=== PATIENT | female | born 1970 | race Caucasian/White ===

== ENCOUNTER 2019-12-07 09:33 | Emergency (ER) | payer BC, SELFPAY ==
[2019-12-07 09:44] VITALS: BP 131/84; PULSE 87; RESP 20; TEMP 36.8; O2SAT 87; BMI 29.0
--- NOTE | 2019-12-07 09:50 | ED.GENADULT ---
HPI - General Adult General Chief complaint: Abdominal Pain Stated complaint: severe right lower back/abd pain x12 hours Time Seen by Provider: 12/07/19 09:37 Source: patient Mode of arrival: Ambulatory Limitations: no limitations History of Present Illness HPI narrative: 49-year-old female here for evaluation of approximately 18 hours of right-sided back/flank/right lower quadrant abdominal pain. She states this started as a gradual onset and then last evening worsened. She states now it is more of a ?burning ?sensation. No nausea vomiting. No change in bowel habits. No urinary symptoms. No blood in her urine. Has never had anything like this in the past. States she did take a naproxen last evening which did potentially help her symptoms somewhat. Never had a kidney stone before. No trauma. Related Data Home Medications Medication Instructions Recorded Confirmed B-complex with vitamin C [Super B 1 tab PO DAILY 12/07/19 12/07/19 Complex-Vitamin C] alprazolam 0.5 mg PO BID PRN 12/07/19 12/07/19 calcium carbonate [Calcium 500] 500 mg PO DAILY 12/07/19 12/07/19 cetirizine 10 mg PO DAILY 12/07/19 12/07/19 fluoxetine 40 mg PO DAILY 12/07/19 12/07/19 magnesium 250 mg PO DAILY 12/07/19 12/07/19 naproxen 250 mg PO BID PRN 12/07/19 12/07/19 norethindrone-e.estradiol-iron [Lo 1 tab PO DAILY 12/07/19 12/07/19 Loestrin Fe] phenylephrine HCl 10 mg PO Q4-6H PRN 12/07/19 12/07/19 pregabalin 75 mg PO BID 12/07/19 12/07/19 sumatriptan-naproxen 1 tab PO Q2-4H PRN 12/07/19 12/07/19 topiramate 25 mg PO DAILY 12/07/19 12/07/19 Previous Rx's Medication Instructions Recorded cyclobenzaprine 10 mg PO TID PRN #12 tab 12/07/19 Allergies Allergy/AdvReac Type Severity Reaction Status Date / Time No Known Drug Allergies Allergy Verified 12/07/19 09:51 Review of Systems Constitutional Constitutional: Denies fever(s) Cardiovascular Cardiovascular: Denies chest pain and Denies dyspnea Respiratory Respiratory: Denies dyspnea Gastrointestinal Gastrointestinal: Reports abdominal pain, Denies change in stool character, Denies nausea and Denies vomiting Genitourinary Genitourinary: Denies dysuria and Denies vaginal discharge Musculoskeletal Musculoskeletal: Reports back pain, Denies myalgias and Denies arthralgias Integumentary/Breasts Skin/Breast: Denies lesions and Denies rash Neurologic Neurologic: Denies behavioral changes Psychiatric Psychiatric: Denies behavioral changes Hematologic/Lymphatic Hematologic/Lymphatic: Denies easy bleeding and Denies easy bruising Patient History Medical History Depression (Acute) Fibromyalgia (Acute) Migraine (Acute) Social History Smoking Status: Never smoker Exam Initial Vital Signs Initial Vital Signs: Vital Signs Temperature 98.3 F 12/07/19 09:44 Pulse Rate 87 12/07/19 09:44 Respiratory Rate 20 12/07/19 09:44 Blood Pressure 131/84 12/07/19 09:44 Pulse Oximetry 87 L 12/07/19 09:44 Const General: cooperative and comfortable Limitations: mental status not altered HENMT Head: normal to inspection and normocephalic Resp Effort & Inspection: normal respiratory effort Auscultation: clear to auscultation bilaterally Cardio Rate: regular rate Rhythm: regular rhythm Pulses: radial pulses present GI Inspection: non-distended Palpation: soft, No firm and No tender Back/Spine/Pelvis Back: No CVA tenderness Skin Lesions: no lesions Rashes: no rashes Neuro General: alert, awake and oriented x3 Cognition: normal cognition Speech: speech normal Extrem General: normal to inspection and capillary refill normal Psych Appearance: grossly normal and well kempt Course Orders Ordered: ED Orders 12/07/19 09:50 CT kidney ureter bladder (KUB) Stat 12/07/19 10:05 Complete Blood Count AUTO DIFF Stat Comprehensive Metabolic Panel Stat Lipase Stat Discontinued Medications Ketorolac Tromethamine (Toradol) 30 mg IV NOW ONE Stop: 12/07/19 09:51 Last Admin: 12/07/19 10:06 Dose: 30 mg Documented by: YULI Vital Signs Vital signs: Vital Signs - 8 hr 12/07/19 09:44 Temperature 98.3 F Pulse Rate 87 Respiratory Rate 20 Blood Pressure 131/84 Pulse Oximetry 87 L Medical Decision Making Lab Data Lab results reviewed: Yes I reviewed the patient's lab results. Result diagrams: 12/07/19 10:05 12/07/19 10:05 Labs: Lab Results 12/07/19 12/07/19 Range/Units 10:05 10:05 WBC 5.9 (4.5-11.0) X10^3/uL RBC 4.15 (4.0-5.2) X10^6/uL Hgb 12.7 (12.0-16.0) g/dL Hct 37.4 (36-46) % MCV 90.0 (80-100) fL MCH 30.7 (26-34) PG MCHC 34.1 (30-36) % RDW 12.7 (11.6-14.8) % Plt Count 187 (150-400) X10^3/uL Neut % (Auto) 62.2 (50-75) % Lymph % (Auto) 25.8 (25-40) % Sanders % (Auto) 9.6 (3-14) % Eos % (Auto) 1.6 L (2-4) % Baso % (Auto) 0.8 (0-2) % Neut # (Auto) 3700 (2408-8448) /uL Lymph # (Auto) 1500 (1618-5029) /uL Sanders # (Auto) 600 (0-900) /uL Eos # (Auto) 100 (0-450) /uL Baso # (Auto) 0 (0-100) /uL Sodium 134 L (137-145) mmol/L Potassium 4.6 (3.4-5.1) mmol/L Chloride 105 (98-107) mmol/L Carbon Dioxide 20 L (22-32) mmol/L BUN 10 (7-17) mg/dL Creatinine 0.74 (0.52-1.04) mg/dL Estimated GFR > 60.0 (>60) mL/min BUN/Creatinine Ratio 13.5 (6-22) Glucose 85 (70-100) mg/dL Calcium 9.0 (8.4-10.2) mg/dL Total Bilirubin 0.8 (0.2-1.3) mg/dL AST 44 H (14-36) IU/L ALT 36 H (<35) IU/L Alkaline Phosphatase 38 (38-126) U/L Total Protein 7.5 (6.3-8.2) g/dL Albumin 4.3 (3.5-5.0) g/dL Globulin 3.2 (1.7-4.1) g/dL Albumin/Globulin Ratio 1.3 (1.0-2.8) Lipase 84 (23-300) U/L Urine Dip Bedside Urine Glucose Negative Bedside Urine Bilirubin - Negative Bedside Urine Ketone - Negative Urine Specific [place] 1.010 Bedside Urine Occult Blood - Negative Bedside Urine pH 7.5 Bedside Urine Protein - Negative Bedside Urine Urobilinogen - Negative Bedside Urine Nitrite - Negative Bedside Urine Leukocytes - Negative Esterase Point of care testing: Urine Dip Bedside Urine Glucose Negative Bedside Urine Bilirubin - Negative Bedside Urine Ketone - Negative Urine Specific [place] 1.010 Bedside Urine Occult Blood - Negative Bedside Urine pH 7.5 Bedside Urine Protein - Negative Bedside Urine Urobilinogen - Negative Bedside Urine Nitrite - Negative Bedside Urine Leukocytes - Negative Esterase Imaging Data CT scan - abdomen/pelvis: Radiologist's Impression: [place] [address] CT Scan Report Signed Patient: Tammie Maria LMR#: [id number] : 1970Acct:[id number] Age/Sex: 49 / FDate of Service: 12/07/19 Loc: ED Accession Number: [id number] Procedure: CT kidney ureter bladder (KUB) Ordering Provider: Juma Mota D.O. PROCEDURE: CT KIDNEY URETER BLADDER (KUB) INDICATIONS: Right-sided flank pain eval for stone TECHNIQUE: Noncontrast 5 mm thick sections acquired from the diaphragms to the symphysis. 5 mm thick coronal and sagittal reformats were then performed. For radiation dose reduction, the following was used: automated exposure control, adjustment of mA and/or kV according to patient size. COMPARISON: None. FINDINGS: Image quality: Excellent. Lung bases: Lung bases are clear. Heart size is normal. Urinary system: Both kidneys are normal in size. No kidney stones. No hydronephrosis or perinephric fat stranding. Bilateral extrarenal pelvis can be seen. Both ureters appear non-dilated throughout their expected courses. Bladder wall thickness is normal; no calcified bladder stones. Other solid organs: Liver is normal in size. Gallbladder wall does not appear thickened. Pancreas is normal in contours. Spleen is normal in size. No adrenal nodules. Peritoneum and bowel: Unenhanced bowel loops demonstrate normal wall thickness and caliber. No free fluid or air. Incidental note is made of a normal-appearing appendix. Nodes and vessels: No retroperitoneal or mesenteric adenopathy by size criteria. Aorta and inferior vena cava are normal in caliber. Abdominal wall: A mild periumbilical hernia is seen, containing fat. Pelvis: No free pelvic fluid. No inguinal hernias or adenopathy. Bones: No suspicious bony lesions. No vertebral body compression fractures. Age-appropriate bony degenerative changes are seen. Incidental note is made of a limbus vertebral body involving the anterior superior portion of the L3 vertebral body. Minimal lumbar levoconvex scoliotic curvature is noted. IMPRESSION: Negative for stones or obstructive uropathy. Bilateral extrarenal pelvis can be seen. Incidental note is made of: Fat containing periumbilical hernia Normal appendix L3 limbus vertebral body Dictated by: Jay Jay Snyder M.D. on 12/07/2019 at 9:38 Approved by: Jay Jay Snyder M.D. on 12/07/2019 at 9:42 MDM Narrative Medical decision making narrative: Patient continues to report some improvement of her symptoms. Her CT scan is negative for any acute pathology. Urine shows no signs of infection. Her symptoms could potentially have been from a recently passed kidney stone. There is no rash on the skin concerning for zoster. Feel we could hold on further workup for now. Patient was given return precautions and follow-up instructions. She expressed understanding and agreement. Discharge Plan Departure Patient Disposition: Home Clinical Impression: Abdominal pain Qualifiers: Abdominal location: right lower quadrant Qualified Code(s): R10.31 - Right lower quadrant pain Instructions: DI for Abdominal Pain-Adult Activity Restrictions/Additional Instructions: Recommend that you contact your primary provider for follow-up. Return to the emergency department for any new or worsening symptoms Prescriptions: New cyclobenzaprine 10 mg tablet 10 mg PO TID PRN (Reason: muscle spasm) Qty: 12 RF: 0 No Action fluoxetine 40 mg Capsule 40 mg PO DAILY RF: 0 cetirizine 10 mg Tablet 10 mg PO DAILY RF: 0 naproxen 250 mg Tablet 250 mg PO BID PRN (Reason: Pain, Mild) RF: 0 topiramate 25 mg Tablet 25 mg PO DAILY RF: 0 alprazolam 0.5 mg Tablet 0.5 mg PO BID PRN (Reason: Pain, Moderate) RF: 0 calcium carbonate [Calcium 500] 500 mg calcium (1,250 mg) Tablet 500 mg PO DAILY RF: 0 magnesium 250 mg Tablet 250 mg PO DAILY RF: 0 B-complex with vitamin C [Super B Complex-Vitamin C] Tablet 1 tab PO DAILY RF: 0 phenylephrine HCl 10 mg Tablet 10 mg PO Q4-6H PRN (Reason: Allergic Symptoms) RF: 0 pregabalin 75 mg Capsule 75 mg PO BID RF: 0 sumatriptan-naproxen 85-500 mg Tablet 1 tab PO Q2-4H PRN (Reason: Migraine Headache) RF: 0 Lo Loestrin Fe 1 mg-10 mcg (24)/10 mcg (2) Tablet 1 tab PO DAILY RF: 0
[2019-12-07] MEDS: KETOROLAC 60 MG/2 ML VIAL 30 MG IV (10:06)
[2019-12-07 10:20] LABS: Eosinophils Absolute Auto 100 /uL (0-450); Hemoglobin 12.7 g/dL (12.0-16.0); Lymphocytes Absolute Auto 1500 /uL (1100-4500); Neutrophils Absolute Auto 3700 /uL (1500-7000); Platelet Count 187 X10^3/uL (150-400); White Blood Cell Count 5.9 X10^3/uL (4.5-11.0)
[2019-12-07 10:24] LABS: Add Manual Diff / Slide Review NO; Basophils Absolute Auto 0 /uL (0-100); Basophils Percent Auto 0.8 % (0-2); Eosinophils Percent Auto 1.6 % (2-4); Hematocrit 37.4 % (36-46); Lymphocytes Percent Auto 25.8 % (25-40); Mean Corpuscular HGB Conc 34.1 % (30-36); Mean Corpuscular Hemoglobin 30.7 PG (26-34); Monocytes Absolute Auto 600 /uL (0-900); Monocytes Percent Auto 9.6 % (3-14); Neutrophils Percent Auto 62.2 % (50-75); Red Blood Cell Count 4.15 X10^6/uL (4.0-5.2); Red Cell Distribution Width 12.7 % (11.6-14.8)
[2019-12-07 10:33] LABS: Alanine Aminotransferase 36 IU/L (<35); Albumin 4.3 g/dL (3.5-5.0); Albumin Globulin Ratio 1.3 (1.0-2.8); Alkaline Phosphatase 38 U/L (38-126); Aspartate Aminotransferase 44 IU/L (14-36); BUN Creatinine Ratio 13.5 (6-22); Bilirubin Total 0.8 mg/dL (0.2-1.3); Blood Urea Nitrogen 10 mg/dL (7-17); Carbon Dioxide 20 mmol/L (22-32); Chloride 105 mmol/L (98-107); Estimated Glomerular Filt Rate > 60.0 mL/min (>60); Globulin 3.2 g/dL (1.7-4.1); Glucose 85 mg/dL (70-100); HEMOLYSIS 86 (0-50); Lipase 84 U/L (23-300); Potassium 4.6 mmol/L (3.4-5.1); Sodium 134 mmol/L (137-145); Total Protein 7.5 g/dL (6.3-8.2)
[2019-12-07 11:30] VITALS: BP 128/74; PULSE 70; RESP 16; O2SAT 100
== END 2019-12-07 11:42 | disposition home or self-care (01) ==
PROVIDERS: Emergency Provider Emergency Medicine
DX: R10.31 Right lower quadrant pain (principal)
CPT/HCPCS: 36415; 74176; 80053; 81003; 83690; 85025; 96374; 99284; J1885

== ENCOUNTER → 2020-05-21 08:25 | Outpatient (CLI) | payer BC, SELFPAY ==
[2020-05-21 08:59] LABS: Add Manual Diff / Slide Review NO; Basophils Absolute Auto 100 /uL (0-100); Basophils Percent Auto 0.9 % (0-2); Eosinophils Absolute Auto 400 /uL (0-450); Eosinophils Percent Auto 6.3 % (2-4); Hematocrit 39.4 % (36-46); Hemoglobin 13.4 g/dL (12.0-16.0); Lymphocytes Absolute Auto 1500 /uL (1100-4500); Lymphocytes Percent Auto 24.6 % (25-40); Mean Corpuscular HGB Conc 34.1 % (30-36); Mean Corpuscular Hemoglobin 30.7 PG (26-34); Mean Corpuscular Volume 90.2 fL (80-100); Monocytes Absolute Auto 400 /uL (0-900); Monocytes Percent Auto 7.1 % (3-14); Neutrophils Absolute Auto 3700 /uL (1500-7000); Neutrophils Percent Auto 61.1 % (50-75); Platelet Count 216 X10^3/uL (150-400); Red Blood Cell Count 4.36 X10^6/uL (4.0-5.2); Red Cell Distribution Width 12.8 % (11.6-14.8)
[2020-05-21 09:28] LABS: Alanine Aminotransferase 21 IU/L (<35); Albumin Globulin Ratio 1.4 (1.0-2.8); Alkaline Phosphatase 44 U/L (38-126); Aspartate Aminotransferase 25 IU/L (14-36); BUN Creatinine Ratio 16.9 (6-22); Bilirubin Total 0.5 mg/dL (0.2-1.3); Blood Urea Nitrogen 15 mg/dL (7-17); Calcium 9.1 mg/dL (8.4-10.2); Carbon Dioxide 27 mmol/L (22-32); Chloride 106 mmol/L (98-107); Cholesterol 200 mg/dL (140-199); Estimated Glomerular Filt Rate > 60.0 mL/min (>60); Globulin 2.9 g/dL (1.7-4.1); Glucose 87 mg/dL (70-100); HDL Cholesterol 59 mg/dL (40-60); HEMOLYSIS < 15 (0-50); LDL Cholesterol Calculated 118 mg/dL (<100); Potassium 4.9 mmol/L (3.4-5.1); Sodium 140 mmol/L (137-145); Total Protein 6.9 g/dL (6.3-8.2); Triglycerides 116 mg/dL (35-150)
[2020-05-21 09:38] LABS: Vitamin D 25 Hydroxy (D3) 45.1 ng/mL (30.0-100.0)
[2020-05-21 09:40] LABS: Free T3, Triiodothyronine Free 2.46 pg/mL (2.77-5.27); Free T4, Direct Thyroxine 1.03 ng/dL (0.78-2.19)
[2020-05-21 09:54] LABS: Thyroid Stimulating Hormone 0.823 uIU/mL (0.47-4.68)
== END ==
PROVIDERS: PCP Family Medicine; Referring Provider Family Medicine; Visit Provider Family Medicine
DX: R60.0 Localized edema (principal); Z13.220 Encounter for screening for lipoid disorders; Z86.39 Personal history of other endocrine, nutritional and metabolic disease; Z86.718 Personal history of other venous thrombosis and embolism
CPT/HCPCS: 36415; 80053; 80061; 82306; 84439; 84443; 84481; 85025

== ENCOUNTER 2020-07-19 09:00 | Outpatient (RCR) | payer BC, SELFPAY ==
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
--- NOTE | 2020-07-21 09:16 | PT-OP ANOTE ---
Pt does not show for appointment. Pt calls pt and leaves message including next appointment date and time. Of note, pt's father was sent in for unexpected brain surgery last week and has been hospitalized this week.
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
== END 2020-08-26 08:40 ==
LOC: PHYS 09:00
PROVIDERS: PCP Family Medicine; Referring Provider Family Medicine; Visit Provider Family Medicine
DX: M54.2 Cervicalgia (principal); G89.29 Other chronic pain; Z87.828 Personal history of other (healed) physical injury and trauma; M54.40 Lumbago with sciatica, unspecified side
CPT/HCPCS: 97110; 97112; 97140; 97162; 97535

== ENCOUNTER → 2021-02-23 08:07 | Outpatient (CLI) | payer OTHER, MEDICAID, SELFPAY ==
[2021-02-23 09:48] LABS: Add Manual Diff / Slide Review NO; Basophils Absolute Auto 0 /uL (0-100); Basophils Percent Auto 0.6 % (0-2); Eosinophils Absolute Auto 100 /uL (0-450); Eosinophils Percent Auto 1.9 % (2-4); Hematocrit 39.5 % (36-46); Hemoglobin 13.2 g/dL (12.0-16.0); Lymphocytes Absolute Auto 2200 /uL (1100-4500); Lymphocytes Percent Auto 31.9 % (25-40); Mean Corpuscular HGB Conc 33.6 % (30-36); Mean Corpuscular Hemoglobin 30.1 PG (26-34); Mean Corpuscular Volume 89.7 fL (80-100); Monocytes Absolute Auto 500 /uL (0-900); Monocytes Percent Auto 7.2 % (3-14); Neutrophils Absolute Auto 4000 /uL (1500-7000); Neutrophils Percent Auto 58.4 % (50-75); Platelet Count 222 X10^3/uL (150-400); Red Cell Distribution Width 13.2 % (11.6-14.8); White Blood Cell Count 6.8 X10^3/uL (4.5-11.0)
[2021-02-23 10:03] LABS: Alanine Aminotransferase 20 IU/L (<35); Albumin 3.7 g/dL (3.5-5.0); Albumin Globulin Ratio 1.3 (1.0-2.8); Alkaline Phosphatase 47 U/L (38-126); Aspartate Aminotransferase 27 IU/L (14-36); Bilirubin Total 0.5 mg/dL (0.2-1.3); Blood Urea Nitrogen 8 mg/dL (7-17); Calcium 8.7 mg/dL (8.4-10.2); Carbon Dioxide 24 mmol/L (22-32); Chloride 105 mmol/L (98-107); Cholesterol 206 mg/dL (140-199); Estimated Glomerular Filt Rate > 60.0 mL/min (>60); Globulin 2.8 g/dL (1.7-4.1); Glucose 80 mg/dL (70-100); HDL Cholesterol 54 mg/dL (40-60); HEMOLYSIS < 15 (0-50); LDL Cholesterol Calculated 118 mg/dL (<100); Potassium 4.1 mmol/L (3.4-5.1); Sodium 136 mmol/L (137-145); Total Protein 6.5 g/dL (6.3-8.2); Triglycerides 172 mg/dL (35-150)
[2021-02-23 10:18] LABS: Free T3, Triiodothyronine Free 3.05 pg/mL (2.77-5.27); Free T4, Direct Thyroxine 0.87 ng/dL (0.78-2.19)
[2021-02-23 10:32] LABS: Thyroid Stimulating Hormone 2.08 uIU/mL (0.47-4.68)
== END ==
PROVIDERS: PCP Family Medicine; Referring Provider Family Medicine; Visit Provider Family Medicine
DX: E03.9 Hypothyroidism, unspecified (principal); E78.5 Hyperlipidemia, unspecified; M79.7 Fibromyalgia; Z86.39 Personal history of other endocrine, nutritional and metabolic disease
CPT/HCPCS: 36415; 80053; 80061; 84439; 84443; 84481; 85025

== ENCOUNTER → 2021-08-11 07:10 | Outpatient (CLI) | payer OTHER, MEDICAID, SELFPAY ==
[2021-08-11 08:17] LABS: Add Manual Diff / Slide Review NO; Basophils Absolute Auto 0 /uL (0-100); Basophils Percent Auto 0.6 % (0-2); Eosinophils Absolute Auto 200 /uL (0-450); Eosinophils Percent Auto 2.8 % (2-4); Hematocrit 37.7 % (36-46); Lymphocytes Absolute Auto 1700 /uL (1100-4500); Lymphocytes Percent Auto 28.8 % (25-40); Mean Corpuscular HGB Conc 34.4 % (30-36); Mean Corpuscular Hemoglobin 30.1 PG (26-34); Mean Corpuscular Volume 87.6 fL (80-100); Monocytes Absolute Auto 600 /uL (0-900); Monocytes Percent Auto 10.1 % (3-14); Neutrophils Absolute Auto 3300 /uL (1500-7000); Neutrophils Percent Auto 57.7 % (50-75); Platelet Count 212 X10^3/uL (150-400); Red Blood Cell Count 4.31 X10^6/uL (4.0-5.2); Red Cell Distribution Width 12.9 % (11.6-14.8); White Blood Cell Count 5.8 X10^3/uL (4.5-11.0)
[2021-08-11 08:41] LABS: Alanine Aminotransferase 23 IU/L (<35); Albumin 4.2 g/dL (3.5-5.0); Albumin Globulin Ratio 1.7 (1.0-2.8); Alkaline Phosphatase 45 U/L (38-126); Aspartate Aminotransferase 26 IU/L (14-36); BUN Creatinine Ratio 10.5 (6-22); Bilirubin Total 0.4 mg/dL (0.2-1.3); Blood Urea Nitrogen 10 mg/dL (7-17); Carbon Dioxide 28 mmol/L (22-32); Chloride 104 mmol/L (98-107); Cholesterol 213 mg/dL (140-199); Estimated Glomerular Filt Rate > 60.0 mL/min (>60); Globulin 2.5 g/dL (1.7-4.1); Glucose 89 mg/dL (70-100); HDL Cholesterol 64 mg/dL (40-60); HEMOLYSIS < 15 (0-50); LDL Cholesterol Calculated 129 mg/dL (<100); Potassium 4.1 mmol/L (3.4-5.1); Sodium 137 mmol/L (137-145); Total Protein 6.7 g/dL (6.3-8.2); Triglycerides 98 mg/dL (35-150)
== END ==
PROVIDERS: PCP Family Medicine; Referring Provider Family Medicine; Visit Provider Family Medicine
DX: E78.00 Pure hypercholesterolemia, unspecified (principal); Z86.39 Personal history of other endocrine, nutritional and metabolic disease; Z86.718 Personal history of other venous thrombosis and embolism
CPT/HCPCS: 36415; 80053; 80061; 82306; 85025

== ENCOUNTER → 2022-02-10 07:45 | Outpatient (CLI) | payer OTHER, MEDICAID, SELFPAY ==
[2022-02-10 10:04] LABS: Thyroid Stimulating Hormone 1.75 uIU/mL (0.47-4.68)
[2022-02-12 17:54] LABS: Free T3, Triiodothyronine Free 3.45 pg/mL (2.77-5.27); Free T4, Direct Thyroxine 1.23 ng/dL (0.78-2.19)
== END ==
PROVIDERS: PCP Family Medicine; Referring Provider Family Medicine; Visit Provider Family Medicine
DX: E03.9 Hypothyroidism, unspecified (principal)
CPT/HCPCS: 36415; 84439; 84443; 84481

== ENCOUNTER → 2022-03-31 15:00 | Outpatient (CLI) | payer OTHER, MEDICAID, SELFPAY ==
[2022-03-31 17:41] LABS: Free T3, Triiodothyronine Free 2.61 pg/mL (2.77-5.27); Free T4, Direct Thyroxine 1.27 ng/dL (0.78-2.19)
[2022-03-31 17:55] LABS: Thyroid Stimulating Hormone 0.906 uIU/mL (0.47-4.68)
== END ==
PROVIDERS: PCP Family Medicine; Referring Provider Family Medicine; Visit Provider Family Medicine
DX: E03.9 Hypothyroidism, unspecified (principal); Z86.718 Personal history of other venous thrombosis and embolism
CPT/HCPCS: 36415; 84439; 84443; 84481

== ENCOUNTER → 2022-05-19 14:31 | Outpatient (CLI) | payer OTHER, MEDICAID, SELFPAY ==
[2022-05-19 17:42] LABS: Thyroid Stimulating Hormone 0.904 uIU/mL (0.47-4.68)
== END ==
PROVIDERS: PCP Family Medicine; Referring Provider Family Medicine; Visit Provider Family Medicine
DX: E03.9 Hypothyroidism, unspecified (principal)
CPT/HCPCS: 36415; 84439; 84443; 84481

== ENCOUNTER → 2022-06-07 08:18 | Outpatient (CLI) | payer OTHER, MEDICAID, SELFPAY | PROVIDERS: PCP Family Medicine; Visit Provider Registered Nurse | DX: R30.0 Dysuria (principal) | CPT/HCPCS: 81002; 87086 ==

== ENCOUNTER 2022-06-07 14:05 | Emergency (ER) | payer OTHER, MEDICAID, SELFPAY ==
[2022-06-07 14:11] VITALS: BMI 27.3
== END 2022-06-07 18:32 | disposition left against medical advice (07) ==
PROVIDERS: Emergency Provider Emergency Medicine; PCP Family Medicine

== ENCOUNTER → 2022-06-21 10:35 | Outpatient (CLI) | payer OTHER, MEDICAID, SELFPAY ==
--- NOTE | 2022-06-21 10:37 | DI.US.S_ITS ---
PROCEDURE: US RENAL COMPLETE INDICATIONS: right flank pain - r/o kidney stone TECHNIQUE: Real-time scanning was performed of the kidneys and bladder, with image documentation. COMPARISON: None. FINDINGS: Kidneys: Kidneys are normal in size. Right kidney measures 10.6 cm long; left kidney measures 1.3 cm long. Right renal cortical thickness is 10.2 cm; left renal cortical thickness is 1.0 cm. Renal cortical echotexture is normal. No nephrolithiasis. Mild pelviectasis bilaterally. No suspicious solid mass lesions. Bladder: Pre-void bladder volume is 190 mL. Post-void residual is 32 mL. Pre-void images demonstrate no intraluminal masses or stones. On pre-void images, bilateral ureteral jets are noted with color Doppler interrogation. (Of note, ureteral jets may not be detectable in up to 25% of cases due to insufficient differences in specific gravity between ureteral and bladder urine). Miscellaneous: No free pelvic fluid. IMPRESSION: 1. No right renal stone identified. 2. Normal size kidneys. Mild bilateral pelviectasis. 3. Mild postvoid residual in the bladder. Dictated by: Rodrigo Parra M.D. on 06/21/2022 at 16:34 Approved by: Rodrigo Parra M.D. on 06/21/2022 at 16:37
== END ==
PROVIDERS: PCP Family Medicine; Referring Provider Registered Nurse; Visit Provider Registered Nurse
DX: R10.9 Unspecified abdominal pain (principal); N28.89 Other specified disorders of kidney and ureter
CPT/HCPCS: 76770

== ENCOUNTER → 2022-06-30 11:07 | Outpatient (CLI) | payer OTHER, MEDICAID, SELFPAY | PROVIDERS: PCP Family Medicine; Visit Provider Physician Assistant | DX: R30.0 Dysuria (principal) | CPT/HCPCS: 81002; 87077; 87086; 87186 ==

== ENCOUNTER → 2022-08-23 09:05 | Outpatient (CLI) | payer OTHER, MEDICAID, SELFPAY ==
[2022-08-23 09:47] LABS: Add Manual Diff / Slide Review NO; Basophils Absolute Auto 100 /uL (0-100); Basophils Percent Auto 0.8 % (0-2); Eosinophils Absolute Auto 100 /uL (0-450); Eosinophils Percent Auto 1.1 % (2-4); Hematocrit 38.9 % (36-46); Hemoglobin 13.2 g/dL (12.0-16.0); Lymphocytes Absolute Auto 1600 /uL (1100-4500); Lymphocytes Percent Auto 24.4 % (25-40); Mean Corpuscular HGB Conc 33.9 % (30-36); Mean Corpuscular Hemoglobin 30.2 PG (26-34); Monocytes Absolute Auto 600 /uL (0-900); Monocytes Percent Auto 8.9 % (3-14); Neutrophils Absolute Auto 4100 /uL (1500-7000); Neutrophils Percent Auto 64.8 % (50-75); Platelet Count 223 X10^3/uL (150-400); Red Blood Cell Count 4.37 X10^6/uL (4.0-5.2); Red Cell Distribution Width 12.5 % (11.6-14.8); White Blood Cell Count 6.4 X10^3/uL (4.5-11.0)
[2022-08-23 10:14] LABS: Alanine Aminotransferase 21 IU/L (<35); Albumin 4.1 g/dL (3.5-5.0); Albumin Globulin Ratio 1.5 (1.0-2.8); Alkaline Phosphatase 56 U/L (38-126); Aspartate Aminotransferase 23 IU/L (14-36); BUN Creatinine Ratio 10.7 (6-22); Bilirubin Total 0.6 mg/dL (0.2-1.3); Blood Urea Nitrogen 9 mg/dL (7-17); Calcium 8.8 mg/dL (8.4-10.2); Carbon Dioxide 22 mmol/L (22-32); Chloride 102 mmol/L (98-107); Cholesterol 197 mg/dL (140-199); Estimated Glomerular Filt Rate > 60 mL/min (>60); Globulin 2.8 g/dL (1.7-4.1); Glucose 77 mg/dL (70-100); HDL Cholesterol 58 mg/dL (40-60); HEMOLYSIS < 15 (0-50); LDL Cholesterol Calculated 113 mg/dL (<100); Potassium 4.3 mmol/L (3.4-5.1); Sodium 135 mmol/L (137-145); Total Protein 6.9 g/dL (6.3-8.2); Triglycerides 131 mg/dL (35-150)
[2022-08-23 11:11] LABS: TSH w/ Reflex to FT4 1.67 uIU/mL (0.47-4.68)
== END ==
PROVIDERS: PCP Family Medicine; Referring Provider Family Medicine; Visit Provider Family Medicine
DX: E03.9 Hypothyroidism, unspecified (principal); Z13.6 Encounter for screening for cardiovascular disorders; Z13.9 Encounter for screening, unspecified
CPT/HCPCS: 36415; 80053; 80061; 84443; 85025

== ENCOUNTER → 2022-11-10 09:12 | Day surgery (SDC) | payer OTHER, MEDICAID, SELFPAY ==
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
[2022-11-10] MEDS: LACTATED RINGERS 1,000 ML 125 ML IV (09:41)
[2022-11-10 10:06] LABS: COVID19 -Nasal RAPID POSITIVE (Negative)
--- NOTE | 2022-11-10 10:10 | SUR.PREOP ---
Per lab, positive Covid test resulted. Patient states that she tested positive 2 weeks ago and never re-tested. She also continues to have a cough. Advised patient that she should have informed the office that she still had a cough and that she should have re-tested prior to being scheduled. V/U. Home with son in stable condition; Endoscopy team and Dr Gilbert of findings. Procedure canceled.
== END ==
PROVIDERS: PCP Family Medicine; Referring Provider Surgery; Visit Provider Surgery
DX: Z12.11 Encounter for screening for malignant neoplasm of colon (principal); U07.1 COVID-19; Z53.09 Procedure and treatment not carried out because of other contraindication
CPT/HCPCS: 45378; 87635; C9803; J2704; J3010

== ENCOUNTER 2022-12-22 14:55 | Day surgery (SDC) | payer OTHER, MEDICAID, SELFPAY ==
[2022-12-22] MEDS: LACTATED RINGERS 1,000 ML 150 ML IV (15:15)
[2022-12-22 15:22] VITALS: BP 133/88; PULSE 82; RESP 16; TEMP 36.7; O2SAT 98; BMI 25.9
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
[2022-12-22 16:48] VITALS: BP 121/84; PULSE 86; RESP 13; TEMP 36.4; O2SAT 100
--- NOTE | 2022-12-22 16:49 | P.OP.COLON_ITS ---
Operative Date/Time/Diagnoses Date of procedure: 12/22/22 Time of procedure: 16:49 Pre-op diagnosis: Colon cancer screening Procedure & Clinicians Study performed: Colonoscopy Indications: Colon cancer screening Surgeon: Natalie Gilbert Procedure Notes Procedure in detail: Patient was taken to the endoscopy suite and placed in a left lateral decubitus position. Time-out was performed. With the help of Dr. Washburn conscious sedation was induced and maintained throughout the case. A digital rectal exam was performed and there were no masses or strictures. The colonoscope was introduced into the anal canal and advanced through to the cecum. The bowel prep was excellent [facility] bowel prep score of 3. The scope was then slowly withdrawn for 10 minutes. Some scattered diverticula were seen in the sigmoid colon. The scope was retroflexed and the hemorrhoidal piles appeared normal. No polyps were seen during the course of the examine no specimens were sent. Patient tolerated the procedure well and went in good condition to the postoperative care unit. Post-procedure Recommendations: Colonoscopy in 10 years
[2022-12-22 16:53] VITALS: BP 137/88; PULSE 75; RESP 12; O2SAT 99
[2022-12-22 16:58] VITALS: BP 153/97; PULSE 79; RESP 13; O2SAT 96
[2022-12-22 17:03] VITALS: BP 145/94; PULSE 70; RESP 13; O2SAT 100
[2022-12-22 17:09] VITALS: BP 158/105; PULSE 66; RESP 10; TEMP 36.4; O2SAT 99
== END 2022-12-22 17:24 | disposition home or self-care (01) ==
PROVIDERS: PCP Family Medicine; Referring Provider Surgery; Visit Provider Surgery
PROC: 0DJD8ZZ Inspection of Lower Intestinal Tract, Via Natural or Artificial Opening Endoscopic (ICD-10-PCS; CPT 45378; principal; 2022-12-22 15:45)
DX: Z12.11 Encounter for screening for malignant neoplasm of colon (principal); Z80.0 Family history of malignant neoplasm of digestive organs; K57.30 Diverticulosis of large intestine without perforation or abscess without bleeding
CPT/HCPCS: 45378; J2704; J3010

== ENCOUNTER → 2023-08-10 09:33 | Outpatient (CLI) | payer OTHER, MEDICAID, SELFPAY ==
[2023-08-10 09:52] LABS: Add Manual Diff / Slide Review NO; Basophils Absolute Auto 100 /uL (0-100); Basophils Percent Auto 1.2 % (0-2); Eosinophils Absolute Auto 100 /uL (0-450); Hematocrit 39.4 % (36-46); Hemoglobin 13.2 g/dL (12.0-16.0); Lymphocytes Absolute Auto 1400 /uL (1100-4500); Lymphocytes Percent Auto 23.8 % (25-40); Mean Corpuscular HGB Conc 33.4 % (30-36); Mean Corpuscular Hemoglobin 30.5 PG (26-34); Mean Corpuscular Volume 91.3 fL (80-100); Monocytes Absolute Auto 400 /uL (0-900); Monocytes Percent Auto 7.4 % (3-14); Neutrophils Absolute Auto 3800 /uL (1500-7000); Neutrophils Percent Auto 66.6 % (50-75); Platelet Count 217 X10^3/uL (150-400); Red Blood Cell Count 4.32 X10^6/uL (4.0-5.2); White Blood Cell Count 5.7 X10^3/uL (4.5-11.0)
[2023-08-10 10:06] LABS: HEMOLYSIS < 15 (0-50)
[2023-08-10 10:16] LABS: Alanine Aminotransferase 22 IU/L (<35); Albumin Globulin Ratio 1.4 (1.0-2.8); Alkaline Phosphatase 37 U/L (38-126); Aspartate Aminotransferase 26 IU/L (14-36); BUN Creatinine Ratio 13.1 (6-22); Bilirubin Total 0.8 mg/dL (0.2-1.3); Blood Urea Nitrogen 11 mg/dL (7-17); Calcium 8.7 mg/dL (8.4-10.2); Carbon Dioxide 27 mmol/L (22-32); Chloride 103 mmol/L (98-107); Cholesterol 190 mg/dL (140-199); Estimated Glomerular Filt Rate > 60 mL/min (>60); Globulin 2.8 g/dL (1.7-4.1); Glucose 87 mg/dL (70-100); HDL Cholesterol 54 mg/dL (40-60); LDL Cholesterol Calculated 111 mg/dL (<100); Potassium 4.6 mmol/L (3.4-5.1); Sodium 137 mmol/L (137-145); Total Protein 6.8 g/dL (6.3-8.2); Triglycerides 126 mg/dL (35-150)
[2023-08-10 10:44] LABS: TSH w/ Reflex to FT4 1.09 uIU/mL (0.47-4.68)
[2023-08-10 16:11] LABS: Vitamin B12 260 pg/mL (239-931)
== END ==
PROVIDERS: PCP Family Medicine; Referring Provider Family Medicine; Visit Provider Family Medicine
DX: T88.7XXA Unspecified adverse effect of drug or medicament, initial encounter (principal); M79.7 Fibromyalgia; E03.9 Hypothyroidism, unspecified; E78.5 Hyperlipidemia, unspecified; F32.9 Major depressive disorder, single episode, unspecified; R53.83 Other fatigue
CPT/HCPCS: 36415; 80053; 80061; 82306; 82607; 84443; 85025

== ENCOUNTER → 2023-12-03 12:06 | Outpatient (CLI) | payer OTHER, MEDICAID, SELFPAY ==
[2023-12-03 13:44] LABS: Follicle Stimulating Hormone < 0.66 mIU/mL; Luteinizing Hormone 0.412 mIU/mL
== END ==
PROVIDERS: PCP Family Medicine; Referring Provider Physician Assistant; Visit Provider Physician Assistant
DX: Z79.890 Hormone replacement therapy (principal)
CPT/HCPCS: 36415; 83001; 83002

== ENCOUNTER 2023-12-24 08:32 | Emergency (ER) | payer OTHER, MEDICAID, SELFPAY ==
[2023-12-24] VITALS (8 sets, daily range): BP systolic 115–138; BP diastolic 78–87; PULSE 66–93; RESP 12–32; TEMP 36.8; O2SAT 95–100; BMI 27.3
--- NOTE | 2023-12-24 08:52 | ED_ITS ---
HPI - General Adult General Chief complaint: Syncope Stated complaint: syncope Time Seen by Provider: 12/24/23 08:34 History of Present Illness HPI narrative: 53-year-old woman with a history of generalized anxiety disorder, hypothyroidism, hyperlipidemia, depression who was helping her mother shower this morning. Patient squatted down and as she stood up she became lightheaded states that she had a syncopal episode and slid down the wall rather than experiencing an acute fall. She comes in for further evaluation. She states that over the last week to week and a half she has been experiencing upper respiratory symptoms that do seem to be getting better. Over the last 48 hours she has been having radicular type pain from her left axilla down to the left 5th finger that she describes as slightly tingly. She does have a history of intermittent neck problems and had similar symptoms on the right side about a year ago. She has not complaining of chest pain, palpitations, cough. She notes she was nauseated with an episode of emesis immediately after the event this morning but has not been vomiting over the previous week. She denies fevers notes low-grade headache this morning but also states she has not had any coffee this morning. She is alert, appropriate and able to speak in full sentence given a complete and coherent history. She has no localizing neurologic symptoms Related Data Home Medications Medication Instructions Recorded Confirmed acetaminophen 500 mg capsule 1,000 mg PO QID PRN Pain (Scale 02/17/20 12/19/23 Score 1-3) naproxen 500 mg tablet 500 mg PO BID PRN Pain (Scale 02/17/20 12/19/23 Score 1-3) alprazolam 0.5 mg tablet 0.5 mg PO BID PRN Pain, Moderate 06/13/22 12/19/23 levocetirizine 5 mg tablet (Xyzal) 5 mg PO DAILY 04/09/23 12/19/23 Adrenal Support PO DAILY 09/03/23 12/19/23 pregabalin 50 mg capsule 100 mg PO BID 10/24/23 12/19/23 Previous Rx's Medication Instructions Recorded fluoxetine 40 mg capsule 40 mg PO DAILY #90 caps 01/29/23 bupropion HCl 75 mg tablet 75 mg PO DAILY #90 tabs 04/09/23 norethindrone 1 mg-ethinyl See Rx Instructions .Route 08/13/23 estradiol 10 mcg (24)-iron 10 .COMPLEX #140 tabs mcg(2) tablet (Lo Loestrin Fe) levothyroxine 50 mcg tablet 50 mcg PO DAILY #90 tabs 10/01/23 Allergies Allergy/AdvReac Type Severity Reaction Status Date / Time No Known Drug Allergies Allergy Unverified 12/19/23 13:08 Review of Systems Review of Systems Narrative: Pertinent positive and negative findings as per HPI Patient History Medical History Fatigue Medication side effects Tremor of both hands Nonscarring hair loss Urinary tract infection Urinary tract infection Weight loss counseling, encounter for Prolonged menstruation Bilateral arm pain Generalized anxiety disorder with panic attacks Chronic foot pain Somatic dysfunction of lower extremity Sacral region somatic dysfunction Pelvic somatic dysfunction Lumbar region somatic dysfunction Segmental and somatic dysfunction of rib cage Thoracic region somatic dysfunction Excessive daytime sleepiness Hyperlipidemia Hypothyroidism (acquired) History of hypokalemia Lower extremity edema Low back pain with sciatica History of whiplash injury Chronic neck pain Rosacea Allergies (~2009) Lower back injury (~2016) Degenerative joint disease (DJD) of hip (~2018) History of blood clots (~09/2015) Pelvic congestion (~1999) Human papilloma virus Medication refill Depression Fibromyalgia (~2018) Migraine Surgical History Anesthesia History of laparoscopy (~1999) Family History Mother Arthritis Polymyalgia rheumatica Hyperlipidemia Brother Testicular cancer Autoimmune disease Grandfather Cancer Grandmother Cancer Grandfather Cancer Grandmother Cancer Father No problems noted. Social History household members: family Smoking Status: Never smoker alcohol intake: former Smoking Status: Never smoker alcohol intake frequency: holidays/special occasions only Substance Use Type: does not use Exam Initial Vital Signs Initial Vital Signs: Vital Signs Pulse Rate 93 H 12/24/23 08:43 Respiratory Rate 32 H 12/24/23 08:43 Pulse Oximetry 95 12/24/23 08:43 General: Healthy appearing, in no acute distress. Able to give a complete and coherent history. Well-nourished well-developed HEENT: Moist mucous membranes, normal sclera with reactive pupils, Neck: No JVD, supple Respiratory: Lungs are clear to auscultation, no wheezing no rales no rhonchi. Full and symmetrical air movement Cardiac: Regular rate and rhythm no murmurs no bruits Abdomen: Soft, nontender, good bowel tones, no flank pain Skin: Warm and dry, no rashes Neurologic: Grossly neurologically intact with no obvious asymmetries or abnormalities. Reports minor paresthesia from the axilla down to the 5th finger with no reproducible sensory abnormalities on physical exam no motor deficits. Extremities: No trauma, well perfused Psych: Cooperative, appropriate insight and affect Course Orders Ordered: Discontinued Medications Sodium Chloride (Normal Saline 0.9%) 1,000 mls @ 1,000 mls/hr IV BOLUS ONE Stop: 12/24/23 10:00 Last Infusion: 12/24/23 10:30 Dose: Infused Documented By: Admin: 12/24/23 09:28 Dose: 1,000 mls/hr Documented By: DAWNA Sodium Chloride (Sodium Chloride 0.9% Flush) 10 ml IV BID GRECIA Sodium Chloride (Sodium Chloride 0.9% Flush) 10 ml IV PRN PRN PRN Reason: Flush Vital Signs Vital signs: Vital Signs - 8 hr 12/24/23 08:43 12/24/23 08:44 12/24/23 08:44 Temperature Pulse Rate 93 H 87 Respiratory Rate 32 H 20 Blood Pressure 138/87 Pulse Oximetry 95 95 Oxygen Delivery Method 12/24/23 08:46 12/24/23 09:00 12/24/23 09:00 Temperature 98.2 F Pulse Rate 84 79 Respiratory Rate 18 17 Blood Pressure 138/87 122/82 Pulse Oximetry 95 96 Oxygen Delivery Method Room Air 12/24/23 09:26 12/24/23 09:26 12/24/23 09:30 Temperature Pulse Rate 74 71 Respiratory Rate 12 12 Blood Pressure 121/85 Pulse Oximetry 98 98 Oxygen Delivery Method 12/24/23 09:30 Temperature Pulse Rate Respiratory Rate Blood Pressure 115/80 Pulse Oximetry Oxygen Delivery Method Medical Decision Making Lab Data 12/24/23 08:45 12/24/23 09:01 Labs: Lab Results 12/24/23 12/24/23 Range/Units 08:45 09:01 WBC 7.4 (4.5-11.0) X10^3/uL RBC 4.65 (4.0-5.2) X10^6/uL Hgb 14.1 (12.0-16.0) g/dL Hct 41.6 (36-46) % MCV 89.4 (80-100) fL MCH 30.3 (26-34) PG MCHC 33.9 (30-36) % RDW 13.1 (11.6-14.8) % Plt Count 235 (150-400) X10^3/uL Neut % (Auto) 56.4 (50-75) % Lymph % (Auto) 31.5 (25-40) % [place] % (Auto) 8.5 (3-14) % Eos % (Auto) 2.8 (2-4) % Baso % (Auto) 0.8 (0-2) % Neut # (Auto) 4200 (2802-4218) /uL Lymph # (Auto) 2300 (2231-9818) /uL [place] # (Auto) 600 (0-900) /uL Eos # (Auto) 200 (0-450) /uL Baso # (Auto) 100 (0-100) /uL D-Dimer 255 (<500) ng/ml Sodium 138 (137-145) mmol/L Potassium 3.6 (3.4-5.1) mmol/L Chloride 106 (98-107) mmol/L Carbon Dioxide 24 (22-32) mmol/L BUN 14 (7-17) mg/dL Creatinine 0.85 (0.52-1.04) mg/dL Estimated GFR > 60 (>60) mL/min BUN/Creatinine Ratio 16.5 (6-22) Glucose 117 H (70-100) mg/dL Calcium 9.0 (8.4-10.2) mg/dL Total Bilirubin 0.7 (0.2-1.3) mg/dL AST 44 H (14-36) IU/L ALT 57 H (<35) IU/L Alkaline Phosphatase 61 (38-126) U/L Troponin I < 0.012 (0.01-0.034) ng/mL Total Protein 7.2 (6.3-8.2) g/dL Albumin 4.4 (3.5-5.0) g/dL Globulin 2.8 (1.7-4.1) g/dL Albumin/Globulin Ratio 1.6 (1.0-2.8) MDM Narrative Medical decision making narrative: CC: Syncopal episode after standing up quickly from a squatting position this morning Complicating co-morbidities: Anxiety, depression, history of multiple syncopal episodes in multiple different situations over the years Data collected from: patient Medical records reviewed: Primary care notes from December 18 as well as October 24 reviewed Differential considered: Orthostatic hypotension, dehydration, renal failure, stroke, cardiac arrhythmia, PE Exam documented above, pertinent findings include: Exam is entirely benign other than the small amount of tingling subjectively reported in the left 5th finger Lab Test results independently reviewed as above. Pertinent findings: CBC is unremarkable CMP shows minimal AST ALT elevations otherwise reassuring Troponin is undetectable D-dimer is not elevated Independently reviewed EKG: Sinus rhythm at a rate of 78, normal intervals, normal axis. No acute ischemic changes Imaging studies independently reviewed: Chest x-ray is reassuring Treatments: 1 L of fluid Re-evaluations: Discussion: 53-year-old woman with what sounds like a orthostatic hypotensive episode this morning while moving quickly from a squatting position to a standing position. Workup does not suggest sepsis, acute coronary syndrome, pulmonary embolism, pneumothorax, stroke or cardiac arrhythmia. She does feel better after being hydrated. We talked about taking it more time in moving from a squatting to a standing position. At this point she is not showing any evidence of acute abnormalities that would require additional workup, imaging or hospitalization. Questions are answered and she is safe for discharge Discharge Plan Departure Patient Disposition: Home Clinical Impression: Syncope due to orthostatic hypotension Instructions: DI for Orthostatic Hypotension Activity Restrictions/Additional Instructions: Thank you for coming in today Fortunately, there is no evidence of severe infection, life-threatening heart abnormalities, no heart attack, no pulmonary embolism no stroke. Remainder of your workup was quite reassuring. In the emergency department you received a L of IV fluid. I suspect that this incident was because you simply stood up too fast and the blood did not get to your brain as quickly as needed to. Please make sure that you are drinking plenty of fluids, if you continue to have any issues I would encourage follow up with her primary care doctor If you have an up another episode of passing out or nearly passing out, would be appropriate to return to the ER Prescriptions: No Action fluoxetine 40 mg capsule 40 mg PO DAILY Qty: 90 3RF Lo Loestrin Fe 1 mg-10 mcg (24)/10 mcg (2) tablet See Rx Instructions .ROUTE .COMPLEX Qty: 140 1RF Dose Instruction: take 1 tablet by mouth once daily Rx Instructions: take 1 tablet by mouth once daily naproxen 500 mg tablet 500 mg PO BID PRN (Reason: Pain (Scale Score 1-3)) acetaminophen 500 mg capsule 1,000 mg PO QID PRN (Reason: Pain (Scale Score 1-3)) alprazolam 0.5 mg tablet 0.5 mg PO BID PRN (Reason: Pain, Moderate) levocetirizine [Xyzal] 5 mg tablet 5 mg PO DAILY bupropion HCl 75 mg tablet 75 mg PO DAILY Qty: 90 3RF levothyroxine 50 mcg tablet 50 mcg PO DAILY Qty: 90 3RF pregabalin 50 mg capsule 100 mg PO BID Adrenal Support PO DAILY Referrals: Dann Sears DO [Primary Care Provider] - Stand Alone Forms: Patient Portal/API
--- NOTE | 2023-12-24 09:01 | DI.RAD.S_ITS ---
PROCEDURE: XR CHEST 1V INDICATIONS: syncope TECHNIQUE: One view of the chest was acquired. COMPARISON: None. FINDINGS: Surgical changes and devices: None. Lungs and pleura: No consolidation or pleural effusions Mediastinum: Normal heart size Bones and chest wall: Unremarkable IMPRESSION: No acute radiographic abnormality on this single view study. Dictated by: Awais Guardado M.D. on 12/24/2023 at 9:22 Approved by: Awais Guardado M.D. on 12/24/2023 at 9:22
[2023-12-24 09:10] LABS: Add Manual Diff / Slide Review NO; Basophils Absolute Auto 100 /uL (0-100); Basophils Percent Auto 0.8 % (0-2); Eosinophils Absolute Auto 200 /uL (0-450); Eosinophils Percent Auto 2.8 % (2-4); Hematocrit 41.6 % (36-46); Hemoglobin 14.1 g/dL (12.0-16.0); Lymphocytes Absolute Auto 2300 /uL (1100-4500); Lymphocytes Percent Auto 31.5 % (25-40); Mean Corpuscular HGB Conc 33.9 % (30-36); Mean Corpuscular Hemoglobin 30.3 PG (26-34); Mean Corpuscular Volume 89.4 fL (80-100); Monocytes Absolute Auto 600 /uL (0-900); Monocytes Percent Auto 8.5 % (3-14); Neutrophils Absolute Auto 4200 /uL (1500-7000); Neutrophils Percent Auto 56.4 % (50-75); Platelet Count 235 X10^3/uL (150-400); Red Blood Cell Count 4.65 X10^6/uL (4.0-5.2); Red Cell Distribution Width 13.1 % (11.6-14.8); White Blood Cell Count 7.4 X10^3/uL (4.5-11.0)
[2023-12-24 09:20] LABS: Alanine Aminotransferase 57 IU/L (<35); Albumin 4.4 g/dL (3.5-5.0); Albumin Globulin Ratio 1.6 (1.0-2.8); Alkaline Phosphatase 61 U/L (38-126); Aspartate Aminotransferase 44 IU/L (14-36); BUN Creatinine Ratio 16.5 (6-22); Bilirubin Total 0.7 mg/dL (0.2-1.3); Blood Urea Nitrogen 14 mg/dL (7-17); Carbon Dioxide 24 mmol/L (22-32); Chloride 106 mmol/L (98-107); Estimated Glomerular Filt Rate > 60 mL/min (>60); Globulin 2.8 g/dL (1.7-4.1); Glucose 117 mg/dL (70-100); HEMOLYSIS < 15 (0-50); Potassium 3.6 mmol/L (3.4-5.1); Sodium 138 mmol/L (137-145); Total Protein 7.2 g/dL (6.3-8.2)
[2023-12-24 09:26] LABS: D Dimer 255 ng/ml (<500)
[2023-12-24] MEDS: SODIUM CHLORIDE 0.9% 1,000 ML 1000 ML IV (09:28)
[2023-12-24 09:31] LABS: Troponin I < 0.012 ng/mL (0.01-0.034)
== END 2023-12-24 10:31 | disposition home or self-care (01) ==
PROVIDERS: Emergency Provider Emergency Medicine; PCP Family Medicine
DX: I95.1 Orthostatic hypotension (principal)
CPT/HCPCS: 36415; 71045; 80053; 84484; 85025; 85379; 93005; 99284

== ENCOUNTER → 2024-01-09 11:08 | Outpatient (CLI) | payer OTHER, MEDICAID, SELFPAY ==
--- NOTE | 2024-01-09 11:09 | DI.MG.S_ITS ---
BILATERAL DIGITAL SCREENING MAMMOGRAM 3D/2D WITH CAD: 01/09/2024 CLINICAL: Routine screening. Family history of breast Cancer. No prior exams were available for comparison. Both breasts are heterogeneously dense, which may obscure small masses (category c / 51-75% glandular tissue). Current study was also evaluated with a Computer Aided Detection (CAD) system. No significant masses, calcifications, or other findings are seen in either breast. IMPRESSION: NEGATIVE There is no mammographic evidence of malignancy. A 1 year screening mammogram is recommended. Based on the Tyrer Cuzick model (a risk assessment model) the patient's lifetime risk is 17.5% and her 10 year risk is 5.5%. According to the ACR, ACS, and NCCN guidelines, an annual breast MRI exam along with mammogram is recommended if the patient's lifetime risk is 20% or greater. This exam was interpreted at Station ID: [id number]. NOTE: For mammograms, a report in lay terms will be sent to the patient. Approximately 15% of breast malignancies will not be visualized mammographically. In the management of a palpable breast mass, a negative mammogram must not discourage biopsy of a clinically suspicious lesion. Electronically Signed By: Dawn pugh/queenie:01/24/2024 14:05:49 letter sent: Normal Exam ACR BI-RADS Category 1: Negative [id number]
[2024-01-09 14:21] LABS: Follicle Stimulating Hormone 27.5 mIU/mL; Luteinizing Hormone 29.9 mIU/mL
== END ==
PROVIDERS: PCP Family Medicine; Referring Provider Physician Assistant Medical; Visit Provider Physician Assistant Medical
DX: Z12.31 Encounter for screening mammogram for malignant neoplasm of breast (principal); Z80.3 Family history of malignant neoplasm of breast; R92.333 Mammographic heterogeneous density, bilateral breasts; N95.1 Menopausal and female climacteric states
CPT/HCPCS: 36415; 77063; 77067; 83001; 83002

== ENCOUNTER → 2024-10-06 09:52 | Outpatient (CLI) | payer OTHER, SELFPAY ==
[2024-10-06 11:27] LABS: Free T4, Direct Thyroxine 1.32 ng/dL (0.78-2.19)
[2024-10-06 11:41] LABS: Thyroid Stimulating Hormone 1.13 uIU/mL (0.47-4.68)
[2024-10-07 11:36] LABS: Dehydroepiandrosterone Sulfate 50.3 ug/dL (29.4-220.5)
[2024-10-11 23:35] LABS: Estradiol, Sensitive 6.8 pg/mL (.)
[2024-10-13 08:36] LABS: Percent Free Testosterone 1.56 % (0.50-2.80); Testosterone Free 0.43 ng/dL (0.10-0.85); Testosterone Total 27.4 ng/dL (.)
== END ==
PROVIDERS: PCP Family Medicine; Referring Provider Family Medicine; Visit Provider Family Medicine
DX: E03.9 Hypothyroidism, unspecified (principal); N95.1 Menopausal and female climacteric states; F32.9 Major depressive disorder, single episode, unspecified; R51.9 Headache, unspecified
CPT/HCPCS: 36415; 82627; 82670; 84402; 84403; 84439; 84443

== ENCOUNTER → 2025-01-26 11:12 | Outpatient (CLI) | payer OTHER, SELFPAY ==
[2025-01-28 13:11] LABS: Candida species Negative (Negative); Gardnerella vaginalis Negative (Negative); Trichomoas vaginalis Negative (Negative)
== END ==
LOC: LAB 11:12
PROVIDERS: PCP Family Medicine; Visit Provider Obstetrics & Gynecology
DX: N89.8 Other specified noninflammatory disorders of vagina (principal)
CPT/HCPCS: 87480; 87510; 87660

== ENCOUNTER → 2025-02-04 11:14 | Outpatient (CLI) | payer OTHER, SELFPAY ==
[2025-02-04 12:57] LABS: TSH w/ Reflex to FT4 0.64 uIU/mL (0.47-4.68)
[2025-02-05 03:36] LABS: CRP, High Sensitivity 0.73 mg/L (0.00-3.00)
[2025-02-06 07:09] LABS: Dehydroepiandrosterone Sulfate 65.1 ug/dL (29.4-220.5)
== END ==
LOC: LAB 11:15
PROVIDERS: PCP Family Medicine; Referring Provider Family Medicine; Visit Provider Family Medicine
DX: N95.1 Menopausal and female climacteric states (principal); E03.9 Hypothyroidism, unspecified; M79.7 Fibromyalgia
CPT/HCPCS: 36415; 82627; 82670; 84443; 86140

== ENCOUNTER → 2025-03-14 08:40 | Outpatient (CLI) | payer OTHER, SELFPAY | PROVIDERS: PCP Family Medicine; Referring Provider Family Medicine; Visit Provider Chiropractor | DX: R30.0 Dysuria (principal) | CPT/HCPCS: 87077; 87086; 87147 ==

== ENCOUNTER → 2025-05-26 15:26 | Outpatient (CLI) | payer OTHER, SELFPAY ==
[2025-05-26 17:43] LABS: TSH w/ Reflex to FT4 1.22 uIU/mL (0.47-4.68)
[2025-06-03 09:36] LABS: Estradiol, Sensitive 23.3 pg/mL (.)
== END ==
PROVIDERS: Family Medicine; PCP Family Medicine; Referring Provider Family Medicine; Visit Provider Family Medicine
DX: E03.9 Hypothyroidism, unspecified (principal); N95.1 Menopausal and female climacteric states
CPT/HCPCS: 82670; 84443

== ENCOUNTER → 2025-08-03 13:17 | Outpatient (CLI) | payer OTHER, SELFPAY ==
[2025-08-03 15:42] LABS: Urine N gonorrhoeae NOT DETECTED
[2025-08-03 15:46] LABS: Urine Chlamydia NOT DETECTED
[2025-08-04 15:55] LABS: HIV 1 & 2 Ab/Ag 4th Gen Combo NEGATIVE (NEGATIVE); Hep C Virus Ab w/Reflex Quant NEGATIVE s/c (NEGATIVE)
== END ==
PROVIDERS: PCP Family Medicine; Referring Provider Family Medicine; Visit Provider Family Medicine
DX: Z11.3 Encounter for screening for infections with a predominantly sexual mode of transmission (principal)
CPT/HCPCS: 36415; 86780; 86803; 87389; 87491; 87591